=== PATIENT | female | born 1975 | race Hispanic/Latino ===

== ENCOUNTER 2017-12-18 02:09 | Emergency (ER) | payer MEDICARE, OTHER ==
[2017-12-18] MEDS ORDERED: LIDOCAINE HCL 2% VISCOUS 15 ML UDCUP ONE (02:24)
[2017-12-18] MEDS ORDERED: ACETAMINOPHEN-CODEINE ELIXIR 5 ML UDCUP ONE (02:24)
[2017-12-18] MEDS ORDERED: HYDROXYZINE HCL 25 MG TABLET ONE (02:24)
[2017-12-18] MEDS ORDERED: MAGNESIUM HYDROXIDE 30 ML/UDCUP ONE (02:24)
== END 2017-12-18 03:21 | disposition home or self-care (01) ==
LOC: EDH 02:09
DX: F14.10 Cocaine abuse, uncomplicated (principal); R05 Cough; F41.9 Anxiety disorder, unspecified; K21.9 Gastro-esophageal reflux disease without esophagitis; F31.9 Bipolar disorder, unspecified
CPT/HCPCS: 71045; 81025

== ENCOUNTER 2018-04-03 10:22 | Emergency (ER) | payer MEDICARE, OTHER ==
[2018-04-03 11:13] LABS: CREATININE 0.7 mg/dL (0.5-1.5); POTASSIUM 3.1 mmol/L (3.5-5.1)
[2018-04-03 11:16] LABS: BASOPHILS % (AUTO) 0.9 % (0.0-5.0); EOSINOPHILS % (AUTO) 2.6 % (0.0-8.0); HEMATOCRIT 30.6 % (36-48); LYMPHOCYTES % (AUTO) 24.8 % (21.0-51.0); MEAN CORPUSCULAR HEMOGLOBIN 30.4 pg (27.0-33.0); MEAN CORPUSCULAR HGB CONC 34.4 g/dL (32.0-36.0); MEAN CORPUSCULAR VOLUME 88.2 fL (79-99); MONOCYTES % (AUTO) 10.4 % (3.0-13.0); NEUTROPHILS % (AUTO) 61.3 % (40.0-77.0); PLATELET COUNT (AUTO) 282 K/uL (130-400); RED BLOOD CELL COUNT(AUTO) 3.47 MIL/uL (4.00-5.50); WHITE BLOOD COUNT (AUTO) 6.9 K/uL (4.8-10.8)
[2018-04-03 11:35] LABS: ALBUMIN 3.3 g/dL (3.5-5.0); BILIRUBIN,TOTAL 0.4 mg/dL (0.2-1.0); CREATINE KINASE MB 37.2 ng/mL (0.5-3.6); TOTAL PROTEIN, SERUM 6.6 g/dL (6.0-8.3)
[2018-04-03] MEDS ORDERED: POTASSIUM BICARB/CIT AC 25 MEQ TABLET.EFF ONE (15:27)
== END 2018-04-03 15:38 | disposition home or self-care (01) ==
LOC: EDH 10:22
DX: M62.82 Rhabdomyolysis (principal); R07.89 Other chest pain; K21.9 Gastro-esophageal reflux disease without esophagitis; F14.20 Cocaine dependence, uncomplicated
CPT/HCPCS: 36415; 80053; 82550; 82553; 84484; 85025; 93005

== ENCOUNTER 2021-01-17 17:52 | Emergency (ER) | payer MEDICARE ==
[2021-01-17] MEDS ORDERED: IBUPROFEN 400 MG TABLET ONE (22:28)
== END 2021-01-17 22:37 | disposition home or self-care (01) ==
LOC: EDH 17:52
DX: F41.1 Generalized anxiety disorder (principal); F32.9 Major depressive disorder, single episode, unspecified
CPT/HCPCS: 81025